=== PATIENT | male | born 1985 | race Caucasian/White ===

== ENCOUNTER 2016-03-17 17:20 | Emergency (ER) | payer OTHER ==
[2016-03-17 20:59] VITALS: BP 112/60
[2016-03-17] MEDS ORDERED: SUCRALFATE 1 G/10 ML UDC PO ONE (22:02)
--- NOTE | 2016-03-17 22:07 | ERNOTE ---
Medical Problem HPI - General Chief Complaint: General Assessment Time Seen by Provider: 03/17/16 21:50 Source: patient, family Exam Limitations: no limitations - Immun/Allergies/Home Medications Immunizations: IMMUNIZATION HX Immunizations Up to Date No History of Influenza Vaccine No Hx Pneumococcal Vaccination No Allergies/Adverse Reactions: Allergies No Known Drug Allergies Allergy (Verified 03/17/16 19:04) Home Medications: HOME MEDICATIONS Hydrocodone/Acetaminophen [Lortab 10-325 mg Tablet] 1 each PO TID PRN 03/17/16 [ Last Taken Unknown] Sucralfate [Carafate Suspension] 1 g PO QID #560 ml 03/17/16 [Last Taken Unknown ] traMADol HCL [Ultram] 50 mg PO TID 03/17/16 [Last Taken Unknown] - History of Present History Narrative: Pt was seen at [facility] yesterday. He was diagnosed with esophagitis and sent home with an rx for prilosec Timing: constant Severity: moderate, severe Modifying Factors - (Worsens): Present: eating Review of Systems - Review of Systems Constitutional: Absent: recent illness EYE: Present: no symptoms reported ENT: Present: no symptoms reported Respiratory: Absent: shortness of breath Cardiology: Present: chest pain Gastrointestinal/Abdominal: Absent: nausea, vomiting Genitourinary: Present: no symptoms reported Musculoskeletal: Present: back pain, muscle pain Skin: Present: no symptoms reported Neurological: Present: no symptoms reported Endocrine: Present: no symptoms reported Hematologic/Lymphatic: Present: no symptoms reported Psych: Present: no symptoms reported - Patient's Past Medical History Patient History - Medical: Other Patient History - Cancer: No Hx of Cancer - Family History Dad Family History - Medical: History Unknown - Social History Living Situations: home Smoking Status: Former smoker Have you smoked in the past 12 months: No Do you dip or chew tobacco: No Alcohol Use: none Drug Use: none Physical Exam - Physical Exam General Appearance: Present: wd/wn, alert, no apparent distress - Pt sitting on the ED cot playing on phone. Neck: Present: normal inspection, nontender Respiratory: Present: no respiratory distress, no accessory muscle use Cardiovascular/Chest: Present: regular rate, rhythm, no murmur, normal peripheral pulses Back Exam: Present: normal inspection, normal range of motion Extremity Exam: Present: normal inspection Neurological Exam: Present: alert, oriented, normal mood/affect, no motor/ sensory deficits Skin Exam: Present: normal color, warm/dry Lymphatic Exam: Present: no adenopathy ED Progress - Results and Orders Patient's Lab Results:: I have reviewed the patient's lab results. - Vital Signs Patient's Vital Signs:: I have reviewed the patient's vital signs. Vital Signs: Vital Signs 03/17/16 03/17/16 18:57 20:56 Temperature 36.7 C Pulse Rate 71 62 Respiratory 18 18 Rate Blood Pressure 125/59 112/60 O2 Sat by Pulse 100 97 Oximetry - Progress/Reassessment Chief Complaint: General Assessment Progress Note-Subjective: 03/17/16 21:50 I reviewed the patients records from [facility] yesterday, including chest CT, ddx and final diagnosis. I spoke with the patient about his symptoms and any changes since that workup, there have been none. I talked to the patient about esophagitis, carafate and PPI's. I found no reason to contradict the diagnosis given yesterday. I discussed the fact that these medications will take time to work and that he will need to keep taking them on a regular basis and take carafate on an empty stomach Departure - Departure Clinical Impression: Esophagitis Disposition: Home Follow Up Needed Condition: Good Instructions: Esophagitis Additional Instructions: Follow up with your primary care or surgeon as recommended by the [facility] physician. Take carafate as directed 30-60 minutes before eating four times a day. Take Omeprazole (Prilosec) 40 mg twice a day. Referrals: [Primary Care Provider] - Prescriptions: Sucralfate [Carafate Suspension] 1 g PO QID #560 ml
== END 2016-03-17 22:14 | disposition home or self-care (01) ==
LOC: ER 17:20
DX: K20.9 Esophagitis, unspecified (principal); Z87.891 Personal history of nicotine dependence